=== PATIENT | female | born 1960 | race Caucasian/White ===

== ENCOUNTER 2016-09-09 14:45 | Emergency (ER) | payer SELFPAY ==
--- NOTE | ~2016-09-09 | CT2 ---
[facility] A Service of [facility] RADIOLOGY TEXT RESULTS PATIENT: BLAS TRUONG LOCATION: [facility] : 62 UNIT #: [id number] AGE: [address]: Dany Dotson MD SEX: F ORDER DR: [id number] [facility]. [place], [place] [address] [id number] E MR#: [id number] Acc #: [id number] NAME: BLAS TRUONG : 1960 SEX: F STUDY DATE/TIME: 09/09/2016 15:56 UNIT: [facility] ROOM: STUDY DESCRIPTION: CT Abd and Pelv W Cont Attending Physician: Dany Dotson M.D. Ordering Physician: Ed Doctor [id number] [facility] Primary Care Physician: Nhan Bryant M.D. MEDICAL IMAGING REPORT This report is preliminary unless electronic signature is present EXAM CT abdomen pelvis with contrast INDICATIONS 56-year-old female with history of left upper abdominal pain and hematuria for 1 week. COMPARISON 10/11/[address] of the abdomen and pelvis was performed following the administration of oral and IV contrast. Coronal and sagittal reformatted images were obtained. Please insert the dose reduction segments. This CT exam was performed with one or more of the following radiation dose reduction techniques: automatic exposure control, adjustment of mA and/or kV according to patient size, and iterative reconstruction. FINDINGS The lung bases are clear. The liver is normal. Cholecystectomy. The spleen is normal. The kidneys, adrenal glands and pancreas are unremarkable. There is no evidence of ascites or lymphadenopathy. Pelvis: Sigmoid diverticulosis. No evidence for diverticulitis. Normal appendix. No free fluid. Bone windows demonstrate degenerative change of the lumbar spine at L4, L5. IMPRESSION 1. No acute findings. [facility] A Service [facility] RADIOLOGY TEXT RESULTS PATIENT: BLAS TRUONG LOCATION: [facility] : 62 UNIT #: [id number] AGE: [address]: Dany Dotson MD SEX: F ORDER DR: 2. Sigmoid diverticulosis without evidence for diverticulitis. 3. Cholecystectomy. Dictated by... Andrea Quintero M.D. THIS IS AN ELECTRONICALLY VERIFIED REPORT Andrea Qunitero M.D. at 09/10/2016 5:07 PM BERNIE/narciso TD: 09/09/2016 22:47 JOB #: [id number] MEDICAL IMAGING REPORT COPY
[2016-09-09 14:32] LABS: BASOPHIL# 0.1 X10e3 (0-0.3); BASOPHIL% 0.9 % (0-2.5); EOSINOPHIL# 0.1 X10e3 (0-0.7); EOSINOPHIL% 1.2 % (0.0-7.0); HEMATOCRIT 43.1 % (35.0-45.0); HEMOGLOBIN 14.5 gm/dL (12.0-16.0); LYMPHOCYTE# 2.3 X10e3 (1.0-3.5); LYMPHOCYTE% 26.9 % (17.0-45.0); MEAN CELL VOLUME 91.3 FL (83-96); MEAN CORPUSCULAR HEMOGLOBIN 30.6 PG (28-34); MEAN CORPUSCULAR HGB CONC 33.6 g/dL (30-36); MEAN PLATELET VOLUME 9.2 FL (6.5-11.5); MONOCYTE# 0.4 X10e3 (0-1.0); MONOCYTE% 4.8 % (3.0-12.0); NEUTROPHIL# 5.8 X10e3 (1.5-7.1); NEUTROPHIL% 66.2 % (40-75); PLATELET COUNT 241 X10e3 (140-420); RED BLOOD COUNT 4.73 X10e (3.90-5.30); RED CELL DISTRIBUTION WIDTH 12.9 % (11.0-15.5); WHITE BLOOD COUNT 8.7 X10e3 (4.0-10.5)
[2016-09-09 14:33] LABS: DIFF IND NO
[2016-09-09 14:45] LABS: URINE SOURCE CLEAN CATCH
[~2016-09-09 14:45] MED LIST: FIORICET W/CODE1 CAP PO; IBUPROFEN600 MG PO; IMITREX PO; MELOXICAM15 MG PO; MORPHINE SULFAT15 M3 PO; OXYCODONE HCL10 MG PO; PRILOSEC PO; XANAX1 MG PO
[2016-09-09 14:50] LABS: URINE APPEARANCE CLEAR; URINE BILIRUBIN NEG (NEG); URINE BLOOD 1+ (NEG); URINE COLOR YELLOW; URINE GLUCOSE NEG (NEG); URINE KETONE NEG (NEG); URINE LEUKOCYTE ESTERASE NEG (NEG); URINE NITRATE NEG (NEG); URINE PROTEIN NEG (NEG); URINE SPECIFIC GRAVITY 1.009 (1.003-1.035); URINE UROBILINOGEN 0.2 MG/DL (NEG)
[2016-09-09 14:52] LABS: URINE BACTERIA AUWI NEG (NEGATIVE); URINE SQUAMOUS EPITHELIAL CELL NONE SEEN /[HPF]; UWBCS1 AUWI 0-2 (0-5)
[2016-09-09 15:00] LABS: CULTURE INDICATED? NO
[2016-09-09 15:02] LABS: ALBUMIN SERUM 4.2 g/dL (3.5-5.0); ALKALINE PHOSPHATASE 100 U/L (32-92); ALT (SGPT) 17 U/L (10-40); AMYLASE 4 U/L (0-46); AST (SGOT) 21 U/L (10-42); BILIRUBIN, DIRECT <0.1 mg/dL (0.0-0.2); BILIRUBIN,INDIRECT 0.1 mg/dL (0.0-0.9); BILIRUBIN,TOTAL 0.2 mg/dL (0.2-2.0); BLOOD UREA NITROGEN 7 mg/dL (9-23); BUN/CREATININE RATIO 8.75; CALCIUM SERUM 9.3 mg/dL (8.4-10.2); CARBON DIOXIDE 26 mmol/L (22-31); CHLORIDE 104 mmol/L (100-111); CREATININE SERUM 0.8 mg/dL (0.6-1.4); GLOM FILT RATE Estimated ABOVE60 mL/min (>60); GLUCOSE FASTING 125 mg/dL (70-110); LIPASE <10 U/L (22-51); POTASSIUM 3.7 mmol/L (3.5-5.1); PROTEIN TOTAL SERUM 7.3 g/dL (6.0-8.3); SODIUM 137 mmol/L (135-145)
== END 2016-09-09 18:10 | disposition home or self-care (01) ==
LOC: CED 14:45
PROVIDERS: Emergency Medicine
DX: R10.9 Unspecified abdominal pain (principal); R31.9 Hematuria, unspecified; F17.210 Nicotine dependence, cigarettes, uncomplicated; Z90.49 Acquired absence of other specified parts of digestive tract
CPT/HCPCS: 36415; 74177; 80048; 80076; 81003; 82150; 83690; 84703; 85025; 96361; 96372; 96374; 99284; J0500; J2405; Q9967

== ENCOUNTER 2016-10-06 12:37 | Emergency (ER) | payer OTHER ==
--- NOTE | ~2016-10-06 | CR173 ---
[facility] A Service of [facility] RADIOLOGY TEXT RESULTS PATIENT: BLAS TRUONG LOCATION: [facility] : 62 UNIT #: [id number] AGE: [address]: Rohit Morton SEX: F ORDER DR: [id number] [facility] [address] [place], [place] [address] [id number] E MR#: [id number] Acc #: [id number] NAME: BLAS TRUONG : 1960 SEX: F STUDY DATE/TIME: 10/06/2016 11:50 UNIT: [facility] ROOM: STUDY DESCRIPTION: CR Knee 3 Views Rt Attending Physician: Rohit Morton Ordering Physician: Ed Doctor [id number] [facility] Primary Care Physician: Nhan Bryant M.D. MEDICAL IMAGING REPORT This report is preliminary unless electronic signature is present EXAM Right knee series 10/06/2016 HISTORY Trauma, right knee pain, swelling 2 days duration. Fell. Right outside knee pain swelling, injury 2 years ago. TECHNIQUE AP lateral and sunrise views of the right knee are presented. FINDINGS Alignment is normal. Mild narrowing lateral aspect patellofemoral joint space compartment. Other joint space compartments appear intact. Ill-defined faint longitudinally oriented lucency in the proximal tibia just lateral to the tibial spine. I see no distinct cortical break. This is favored to be some form of projectional artifact. Nondisplaced hairline fracture is felt unlikely. Correlate with mechanism of injury and location of patient's pain. Well corticated calcification along the lateral aspect of the patella on the sunrise view favored to reflect sequelae of remote trauma with nonunion of a small fracture fragment or an accessory ossification center. This is not felt to be acute. No soft tissue defect, subcutaneous air or radiodense foreign body. No joint effusion. Dictated by... Elbert Rubin M.D. THIS IS AN ELECTRONICALLY VERIFIED REPORT Elbert Rubin M.D. at 10/07/2016 5:36 PM [facility] A Service of [facility] RADIOLOGY TEXT RESULTS PATIENT: BLAS TRUONG LOCATION: [facility] : 62 UNIT #: [id number] AGE: [address]: Rohit Morton SEX: F ORDER DR: JAVIER/andre TD: 10/06/2016 14:35 JOB #: [id number] MEDICAL IMAGING REPORT Page 1 of 1 COPY
== END 2016-10-06 14:00 | disposition home or self-care (01) ==
LOC: CFTX 12:37
DX: S83.91XA Sprain of unspecified site of right knee, initial encounter (principal); S86.911A Strain of unspecified muscle(s) and tendon(s) at lower leg level, right leg, initial encounter; F17.210 Nicotine dependence, cigarettes, uncomplicated; W19.XXXA Unspecified fall, initial encounter; Y92.009 Unspecified place in unspecified non-institutional (private) residence as the place of occurrence of the external cause
CPT/HCPCS: 29505; 73562; 96372; 99283; J1885

== ENCOUNTER 2016-12-14 15:08 | Emergency (ER) | payer OTHER ==
--- NOTE | ~2016-12-14 | CT2 ---
[facility] A Service of [facility] RADIOLOGY TEXT RESULTS PATIENT: BLAS TRUONG LOCATION: [facility] : 62 UNIT #: [id number] AGE: [address]: Dany Warner MD SEX: F ORDER DR: [id number] [facility] [address] [place], [place] [address] [id number] E MR#: [id number] Acc #: [id number] NAME: BLAS TRUONG : 1960 SEX: F STUDY DATE/TIME: 12/14/2016 17:34 UNIT: [facility] ROOM: STUDY DESCRIPTION: CT Abd and Pelv W Cont Attending Physician: Dany Warner M.D. Ordering Physician: Dany Warner M.D. Primary Care Physician: Nhan Bryant M.D. MEDICAL IMAGING REPORT This report is preliminary unless electronic signature is present EXAM CT scan of the abdomen and pelvis with contrast, 12/14/2016 HISTORY Right upper quadrant abdominal pain for 2 weeks, worsening today with bilateral lower quadrant abdominal pain, also worsening today. TECHNIQUE Spiral CT was performed through the abdomen and pelvis following intravenous contrast administration only as per clinician request. This CT exam was performed with one or more of the following radiation dose reduction techniques: automatic exposure control, adjustment of mA and/or kV according to patient size, and iterative reconstruction. FINDINGS ABDOMEN: The exam is limited by the lack of oral contrast. The liver demonstrates mild fatty infiltration. The spleen, pancreas and adrenal glands are normal. The gallbladder is surgically absent. The kidneys are normal bilaterally. PELVIS FINDINGS: There is colonic diverticulosis without evidence of diverticulitis. The gut is otherwise unremarkable. No adenopathy is seen and there is no free fluid in the abdomen or pelvis. The lung bases are normal. IMPRESSION 1. Exam is limited by the lack of oral contrast. 2. Mild fatty infiltration of the liver. 3. Surgical absence of the gallbladder. 4. Diverticulosis. No evidence of diverticulitis. [facility] A Service [facility] RADIOLOGY TEXT RESULTS PATIENT: BLAS TRUONG LOCATION: [facility] : 62 UNIT #: [id number] AGE: [address]: Dany Warner MD SEX: F ORDER DR: Dictated by... Cr Kee M.D. THIS IS AN ELECTRONICALLY VERIFIED REPORT Cr Kee M.D. at 12/15/2016 8:30 AM CHRISTINE/donovan TD: 12/14/2016 21:12 JOB #: [id number] MEDICAL IMAGING REPORT Page 1 of 1 COPY
[2016-12-14 15:30] LABS: BASOPHIL# 0.1 X10e3 (0-0.3); EOSINOPHIL# 0.2 X10e3 (0-0.7); EOSINOPHIL% 1.7 % (0.0-7.0); HEMATOCRIT 41.8 % (35.0-45.0); HEMOGLOBIN 13.8 gm/dL (12.0-16.0); LYMPHOCYTE# 3.2 X10e3 (1.0-3.5); LYMPHOCYTE% 35.1 % (17.0-45.0); MEAN CORPUSCULAR HEMOGLOBIN 29.8 PG (28-34); MEAN CORPUSCULAR HGB CONC 33.1 g/dL (30-36); MEAN PLATELET VOLUME 8.4 FL (6.5-11.5); MONOCYTE# 0.5 X10e3 (0-1.0); MONOCYTE% 5.7 % (3.0-12.0); NEUTROPHIL# 5.2 X10e3 (1.5-7.1); NEUTROPHIL% 56.5 % (40-75); PLATELET COUNT 218 X10e3 (140-420); RED BLOOD COUNT 4.64 X10e (3.90-5.30); RED CELL DISTRIBUTION WIDTH 14.1 % (11.0-15.5); WHITE BLOOD COUNT 9.1 X10e3 (4.0-10.5)
[2016-12-14 15:34] LABS: DIFF IND NO
[2016-12-14 16:03] LABS: ALBUMIN SERUM 4.2 g/dL (3.5-5.0); ALKALINE PHOSPHATASE 163 U/L (32-92); ALT (SGPT) 86 U/L (10-40); AST (SGOT) 103 U/L (10-42); BILIRUBIN, DIRECT <0.1 mg/dL (0.0-0.2); BILIRUBIN,INDIRECT 0.4 mg/dL (0.0-0.9); BILIRUBIN,TOTAL 0.5 mg/dL (0.2-2.0); BLOOD UREA NITROGEN 8 mg/dL (9-23); BUN/CREATININE RATIO 11.42; CALCIUM SERUM 9.2 mg/dL (8.4-10.2); CARBON DIOXIDE 27 mmol/L (22-31); CHLORIDE 103 mmol/L (100-111); CREATININE SERUM 0.7 mg/dL (0.6-1.4); GLOM FILT RATE Estimated 97.5 mL/min (>60); GLUCOSE FASTING 118 mg/dL (70-110); LIPASE <10 U/L (22-51); POTASSIUM 3.6 mmol/L (3.5-5.1); PROTEIN TOTAL SERUM 6.9 g/dL (6.0-8.3); SODIUM 138 mmol/L (135-145)
[2016-12-14 16:03] LABS: URINE SOURCE CLEAN CATCH
[2016-12-14 16:09] LABS: URINE APPEARANCE CLEAR; URINE BILIRUBIN NEG (NEG); URINE BLOOD 2+ (NEG); URINE COLOR YELLOW; URINE GLUCOSE NEG (NEG); URINE KETONE NEG (NEG); URINE LEUKOCYTE ESTERASE NEG (NEG); URINE NITRATE NEG (NEG); URINE PROTEIN NEG (NEG); URINE SPECIFIC GRAVITY 1.004 (1.003-1.035); URINE UROBILINOGEN 0.2 MG/DL (NEG)
[2016-12-14 16:14] LABS: URINE BACTERIA AUWI NEG (NEGATIVE); URINE SQUAMOUS EPITHELIAL CELL NONE SEEN /[HPF]; UWBCS1 AUWI 0-2 (0-5)
[2016-12-14 16:27] LABS: CULTURE INDICATED? NO
== END 2016-12-14 18:40 | disposition home or self-care (01) ==
LOC: CED 15:08
DX: R10.84 Generalized abdominal pain (principal); R11.0 Nausea; F17.200 Nicotine dependence, unspecified, uncomplicated
CPT/HCPCS: 36415; 74177; 80048; 80076; 81003; 83690; 85025; 96361; 96374; 96375; 99284; J1885; J2405; Q9967

== ENCOUNTER 2016-12-24 20:49 | Emergency (ER) | payer OTHER ==
--- NOTE | ~2016-12-24 | CT71 ---
[facility] A Service [facility] RADIOLOGY TEXT RESULTS PATIENT: BLAS TRUONG LOCATION: [facility] : 62 UNIT #: [id number] AGE: [address]: Teddy De Leon MD SEX: F ORDER DR: [id number] [id number] [place], [place] [address] [id number] E MR#: [id number] Acc #: [id number] NAME: BLAS TRUONG : 1960 SEX: F STUDY DATE/TIME: 12/24/2016 23:55 UNIT: [facility] ROOM: STUDY DESCRIPTION: CT Head Wo Contrast Attending Physician: Jose De Leon M.D. Ordering Physician: Ed Doctor [id number] [facility] Primary Care Physician: Nhan Bryant M.D. MEDICAL IMAGING REPORT This report is preliminary unless electronic signature is present EXAM CT head without contrast INDICATION Headache after head injury at work today. PROCEDURE Unenhanced CT head This CT exam was performed with one or more of the following radiation dose reduction techniques: automatic exposure control, adjustment of mA and/or kV according to patient size, and iterative reconstruction. COMPARISON 04/08/2016 FINDINGS No acute hemorrhage, abnormal mass effect, extraaxial collection or hydrocephalus. No calvarial fracture. The paranasal sinuses and mastoid air cells are clear. IMPRESSION No acute intracranial findings. Dictated by... Jose Carrillo M.D. THIS IS AN ELECTRONICALLY VERIFIED REPORT Jose Carrillo M.D. at 12/25/2016 10:08 PM Eriberto TD: 12/25/2016 09:36 JOB #: [id number] [facility] A Service [facility] RADIOLOGY TEXT RESULTS PATIENT: BLAS TRUONG LOCATION: [facility] : 62 UNIT #: [id number] AGE: [address]: Teddy De Leon MD SEX: F ORDER DR: MEDICAL IMAGING REPORT Page 1 of 1 COPY
== END 2016-12-25 00:40 | disposition home or self-care (01) ==
LOC: CED 20:49
DX: S09.90XA Unspecified injury of head, initial encounter (principal); G43.909 Migraine, unspecified, not intractable, without status migrainosus; F17.210 Nicotine dependence, cigarettes, uncomplicated; W22.8XXA Striking against or struck by other objects, initial encounter; Y92.69 Other specified industrial and construction area as the place of occurrence of the external cause
CPT/HCPCS: 70450; 96372; 99283; J1885; J2765